=== PATIENT | female | born 1970 | race Caucasian/White ===

== ENCOUNTER 2018-11-30 12:46 | Emergency (ER) | payer BC ==
[~2018-11-30] VITALS: Ht 160 cm; Wt 72.4 kg
[~2018-11-30 12:46] MED LIST: MECL12.574 PO; ONDA4TAB8 PO
[2018-11-30 12:53] VITALS: BP 173/83; PULSE 86; RESP 18; Ht 160 cm; Wt 72.4 kg
[2018-11-30] MEDS ORDERED: ACETAMINOPHEN 325 MG TAB PO STA (13:24)
[2018-11-30] MEDS ORDERED: SOD CHLORIDE 0.9% 500 ML IV STA (13:24)
[2018-11-30] MEDS ORDERED: ONDANSETRON 4 MG INJ IV STA (13:24)
== END 2018-11-30 15:13 | disposition home or self-care (01) ==
LOC: FTE 12:46
DX: H81.10 Benign paroxysmal vertigo, unspecified ear (principal); Z85.3 Personal history of malignant neoplasm of breast
CPT/HCPCS: 70450; 80048; 81003; 81025; 85025; 96361; 96374; 99285; J2405; J7040